=== PATIENT | male | born 2000 | race Caucasian/White ===

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

== ENCOUNTER → 2019-05-11 | Outpatient (CLI) | payer OTHER ==
[~2019-05-11] MED LIST changes: +KET10 PO; -OMEP-125 PO; +OMEP-126 PO
[2019-05-11 11:00] LABS: PLATELET COUNT, AUTOMATED 220 K/uL (150-450)
== END ==
LOC: LAB 10:30
PROVIDERS: ATTEND Nurse Practitioner Family
DX: R10.9 Unspecified abdominal pain (principal); R19.7 Diarrhea, unspecified
CPT/HCPCS: 36415; 82040; 82150; 82247; 82310; 82374; 82435; 82565; 82784; 82947; 83690; 84075; 84132; 84155; 84295; 84450; 84460; 84520; 85025; 85651; 86140

== ENCOUNTER → 2019-05-12 | Outpatient (CLI) | payer OTHER | LOC: LAB 13:00 | PROVIDERS: ATTEND Nurse Practitioner Family | DX: E80.6 Other disorders of bilirubin metabolism (principal); R10.9 Unspecified abdominal pain; R19.7 Diarrhea, unspecified | CPT/HCPCS: 36415; 82247; 82248; 83630; 87045; 87338 ==

== ENCOUNTER → 2019-05-19 | Outpatient (CLI) | payer OTHER ==
--- NOTE | 2019-05-19 11:33 | RADIOLOGY IMAGING REPORT ---
FACILITY: [facility] PATIENT NAME: Blue Vizcaino : 2000 MR: [id number] V: [id number] EXAM DATE: [id number] ORDERING PHYSICIAN: AMANDEEP CASAREZ TECHNOLOGIST: Location: [facility] Patient: Blue Vizcaino : 2000 Visit/Account:[id number] Date of Sevice: 05/19/2019 EXAMINATION: Ultrasound abdomen right upper quadrant HISTORY: Abdominal pain. COMPARISON: None. FINDINGS: Gallbladder: No stones, wall thickening, pericholecystic fluid or sonographic Shoemaker sign. The gallbl adder wall thickness is normal at 2 mm. Liver: The echogenicity is normal with homogenous echotexture. Normal hepatopetal flow is present. T he liver length is 13.5 cm. Common bile duct: No significant intrahepatic or extrahepatic biliary ductal dilatation is present. T he common bile duct is normal at 2 mm. Pancreas: Normal where visualized. Right kidney: Normal in size and echogenicity, measuring 9.8 cm in length. No hydronephrosis. Upper abdominal aorta and IVC: Patent. Ascites: None. IMPRESSION: 1. No cholelithiasis or sonographic evidence of acute cholecystitis. 2. No significant finding to account for the patient's pain. Report Dictated By: Kimberlyn Yuan MD at 05/19/2019 11:25 AM Report E-Signed By: Kimberlyn Yuan MD at 05/19/2019 11:28 AM WSN:NEAL
== END ==
LOC: US 07:26
PROVIDERS: ATTEND Nurse Practitioner Family
DX: R10.9 Unspecified abdominal pain (principal)
CPT/HCPCS: 76705

== ENCOUNTER → 2019-06-25 | Outpatient (CLI) | payer OTHER ==
[~2019-06-25] MED LIST changes: +SINCALIDE 5 MCG VIAL INJ ONE; +WATER FOR INJ,STERILE 20 ML 20 ML ONE
--- NOTE | 2019-06-25 16:06 | RADIOLOGY IMAGING REPORT ---
[place] [facility] [place] NAME: Blue Vizcaino : 2000 MR: [id number] V: [id number] EXAM DATE: ORDERING PHYSICIAN: JESSEE KWON TECHNOLOGIST: [place] [facility] [place] Blue Vizcaino : 2000 Visit/Account:[id number] Date of Sevice: 06/25/2019 [place] HIDA SCAN Indication: 18-year-old with right upper quadrant pain. Comparison studies: Ultrasound abdomen from May 19, 2019. Procedure: Following the intravenous injection of technetium 99m labeled mebrofenin 5.8 mCi imaging w as performed over the abdomen for 18 minutes. Afterwards the patient was injected with 2.3 micrograms of intravenous CCK and the gallbladder ejection fraction was calculated in standard fashion. Findings: After 2 minutes there was clearance of radioisotope from the blood stream. After 8 minutes there was activity in the biliary system. After 8 minutes there is activity in the bowel. After 9 minutes there was activity in the gallbladder. The gallbladder ejection fraction is 96 %. The injection of CCK reproduced symptoms of nausea and vom iting the patient has been having. IMPRESSION: 1. Normal uptake and excretion of biliary radioisotope. 2. The gallbladder fills normally after 18 minutes. 3. The gallbladder ejection fraction after injecting CCK was 96%. Report Dictated By: Jaylen Sales MD at 06/25/2019 3:46 PM Report E-Signed By: Jaylen Sales MD at 06/25/2019 3:58 PM WSN:[email or web address]
== END ==
LOC: NUC 01:41
PROVIDERS: ATTEND Surgery
DX: R10.9 Unspecified abdominal pain (principal)
CPT/HCPCS: 78226; A9537; J2805

== ENCOUNTER 2019-07-16 01:44 | Day surgery (SDC) | payer OTHER ==
[~2019-07-16] VITALS: Ht 175.3 cm; Wt 54.0 kg
[2019-07-16] VITALS (12 sets, daily range): BP systolic 94–135; BP diastolic 57–96
[~2019-07-16 01:44] MED LIST changes: -SINCALIDE 5 MCG VIAL INJ ONE; -WATER FOR INJ,STERILE 20 ML 20 ML ONE
[2019-07-16] MEDS: NORMOSOL R SOLN(*) 1000 ML BAG 1,000 ML IV PRN (10:05)
[2019-07-16] MEDS: LIDOCAINE/SOD BICARB 8.4% SYR ID ONE (10:05)
[2019-07-16] MEDS: GLYCOPYRROLATE 0.2MG/ML 1 ML INJ ONE (11:20)
[2019-07-16] MEDS: OXYMETAZOLINE SPRAY 15 ML BTL ENA SCH (11:35)
[2019-07-16] MEDS: MIDAZOLAM 2 MG/2 ML VIAL IVP PRN (11:43)
--- NOTE | 2019-07-16 12:22 | Short(Outpt) Discharge Summary ---
Discharge Summary Reason for Hosp/Final Diag: (1) Abdominal pain Hospital Course & Plan: pt presented for egd and colonoscopy. he tolerated the procedures well and will be discharged home when criteria met. Departure Discharge to: Home Discharge Instructions Home Meds No Active Prescriptions or Reported Meds Diet: Regular Activity: As Tolerated Special Instructions: we will call you in 7 days with results. JESSEE KWON Jul 16, 2019 12:22
== END 2019-07-16 14:23 | disposition home or self-care (01) ==
LOC: OR 01:44
PROVIDERS: ATTEND Surgery
DX: K29.70 Gastritis, unspecified, without bleeding (principal); R10.9 Unspecified abdominal pain; R19.7 Diarrhea, unspecified; K21.9 Gastro-esophageal reflux disease without esophagitis
CPT/HCPCS: 87077; 88305; 88313; 88342; J2250; J3490